=== PATIENT | female | born 1950 | race Caucasian/White ===

== ENCOUNTER → 2024-06-20 08:39 | Outpatient (REF) | payer OTHER, SELFPAY | LOC: RAD 08:39 | PROVIDERS: ATTENDING PHYSICIAN Surgery Vascular Surgery; FAMILY PHYSICIAN Family Medicine Sports Medicine | DX: I77.9 Disorder of arteries and arterioles, unspecified (principal); I65.22 Occlusion and stenosis of left carotid artery; I70.8 Atherosclerosis of other arteries | CPT/HCPCS: 93880; 93922; 93923; 93925; 93930; 93978 ==

== ENCOUNTER → 2024-06-29 15:36 | Outpatient (REF) | payer OTHER, SELFPAY | LOC: RAD 15:36 | PROVIDERS: ATTENDING PHYSICIAN Surgery Vascular Surgery; FAMILY PHYSICIAN Family Medicine Sports Medicine | DX: M79.89 Other specified soft tissue disorders (principal) | CPT/HCPCS: 93971 ==

== ENCOUNTER → 2025-01-16 08:59 | Outpatient (REF) | payer OTHER, SELFPAY | LOC: RAD 08:59 | PROVIDERS: ATTENDING PHYSICIAN Surgery Vascular Surgery; FAMILY PHYSICIAN Family Medicine Sports Medicine | DX: I65.22 Occlusion and stenosis of left carotid artery (principal); I70.8 Atherosclerosis of other arteries; I77.9 Disorder of arteries and arterioles, unspecified | CPT/HCPCS: 93880; 93922; 93923; 93925; 93930 ==

== ENCOUNTER 2025-05-30 09:40 | Day surgery (SDC) | payer OTHER, SELFPAY ==
[2025-05-30 09:59] VITALS: BMI 25.9
[2025-05-30 10:16] VITALS: BP 200/82
[2025-05-30 10:18] VITALS: BP 195/84
[2025-05-30 10:18] LABS: Hematocrit 43.4 % (37.0-47.0); Hemoglobin 15.2 g/dL (12.0-16.0); Mean Corp Hgb Conc. 35.0 g/dL (33.0-37.0); Mean Corpuscular Volume 89.9 fL (81.0-99.0); Platelet Count 198 10^3/uL (130-400); Red Cell Dist. Width 13.3 % (11.5-14.5)
[2025-05-30 10:30] LABS: APTT 26.5 Sec (23.4-35.0); Blood Urea Nitrogen 17 mg/dl (7-17); Calcium 9.6 mg/dl (8.4-10.2); Carbon Dioxide 33 mmol/L (22-30); Chloride 97 mmol/L (98-107); Estimated Creatinine Clearance 61 ml/min; Glucose 143 mg/dl (70-99); INR 0.82; PT 11.8 Sec (11.4-14.6); Potassium 2.8 mmol/L (3.5-5.1); Sodium 139 mmol/L (135-145); eGFR > 60.00
[2025-05-30] MEDS: NSS 500 IV (10:35)
--- NOTE | 2025-05-30 10:37 | PTCARENOTE ---
POTASSIUM LEVEL 2.8, INSTITUTIONAL RESEARCH DIRECTOR NICA MADE AWARE.
--- NOTE | 2025-05-30 10:56 | PTCARENOTE ---
DR ROMERO AND DR GLYNN MADE AWARE OF POTASSIUM LEVEL OF 2.8. PROCEDURE CX. PT TO RECEIVE 40 MEQ POTASSIUM CHLORIDE STAT AND REPEAT LEVEL AT 1300.
[2025-05-30] MEDS: KCL 40 MEQ PO ×2 (11:04→13:51)
--- NOTE | 2025-05-30 11:05 | W.PN.UPDATE ---
Update Note
Progress Note Update
Patient here for right lower extremity angiogram procedure. Her potassium measurement on today's labs is 2.8. She tends to run low and is on some replacement therapy as an outpatient, but this is lower than expected or we would prefer for an
elective procedure such as this. I discussed with the anesthesiologist who also was not comfortable proceeding. As the procedure is not urgent/emergent, safest measure may be for canceling procedure and having patient address potassium issues with
her primary care team. Given the low value currently we will give her potassium replacement now, and recheck. And will encourage her/assist her with arranging expeditious outpatient follow-up with her primary care team.
--- NOTE | 2025-05-30 13:15 | PTCARENOTE ---
BMP DRAWN AND SENT TO LAB
[2025-05-30 13:35] LABS: Blood Urea Nitrogen 18 mg/dl (7-17); Calcium 9.0 mg/dl (8.4-10.2); Carbon Dioxide 33 mmol/L (22-30); Chloride 97 mmol/L (98-107); Estimated Creatinine Clearance 72 ml/min; Glucose 140 mg/dl (70-99); Potassium 3.2 mmol/L (3.5-5.1); Sodium 138 mmol/L (135-145); eGFR > 60.00
--- NOTE | 2025-05-30 13:37 | PTCARENOTE ---
REPEAT POTASSIUM 3.2. LIQUOR INSPECTOR COOK AWARE
--- NOTE | 2025-05-30 14:09 | PTCARENOTE ---
PT POTASSIUM LEVEL 3.2, GARY BAUM AWARE AND PT RECEIVED ADDITIONAL 40MEQ OF POTASSIUM CHLORIDE, PT OK FOR D/C PER GARY BAUM
== END 2025-05-30 14:05 | disposition home or self-care (01) ==
LOC: CATH 09:40
PROVIDERS: Nurse Practitioner; ATTENDING PHYSICIAN Surgery Vascular Surgery; PRIMARYCARE PHYSICIAN Family Medicine Sports Medicine; REFERRING PHYSICIAN Internal Medicine Cardiovascular Disease
DX: I77.9 Disorder of arteries and arterioles, unspecified (principal); Z53.09 Procedure and treatment not carried out because of other contraindication; I10 Essential (primary) hypertension; E78.5 Hyperlipidemia, unspecified; Z79.82 Long term (current) use of aspirin; Z79.02 Long term (current) use of antithrombotics/antiplatelets
CPT/HCPCS: 80048; 85027; 85610; 85730; 86850; 86900; 86901

== ENCOUNTER 2025-06-19 06:21 | Day surgery (SDC) | payer OTHER, SELFPAY ==
[2025-06-19] VITALS (14 sets, daily range): BP systolic 125–178; BP diastolic 52–74; BMI 25.5
--- NOTE | 2025-06-19 07:00 | HP.FOC2 ---
Focused History & Physical
Chief Complaint
HPI:
Chief Complaint: None
HPI / Indication for Planned Procedure: 74-year-old female here today for planned right extremity arteriogram with Dr. Truong. Patient presents at baseline health. Denies recent illnesses or trauma. Patient agreeable to proceed with planned
procedure today
Relevant Past Medical History: Other (Hyperlipidemia, hypertension, PVD, colitis)
Relevant Social History: Negative
Relevant Family History: Negative
Review of Systems
Review of Pertinent Systems: All Systems Negative
Medication
See Medication form for detailed medications: Yes
Medication List (including Herbals & OTC):
acetaminophen 500 mg capsule 500 mg PO Q6H PRN mild pain 11/17/21
aspirin 81 mg tablet,delayed release 81 mg PO DAILY Blood clot prevention/tx 11/17/21
biotin 1 mg tablet 1 mg PO DAILY Supplement 11/17/21
calcium carbonate 500 mg PO HS Supplement 11/17/21
coenzyme Q10 200 mg capsule (Co Q-10) 200 mg PO HS Supplement 11/17/21
hydrochlorothiazide 25 mg tablet 25 mg PO DAILY Blood pressure 11/17/21
pantoprazole 40 mg tablet,delayed release 40 mg PO DAILY Gastrointestinal issue 11/17/21
rosuvastatin 10 mg tablet 10 mg PO HS High cholesterol 11/17/21
vitamin B complex 1 tab PO DAILY Supplement 11/17/21
melatonin 10 mg tablet 10 mg PO HS PRN SLEEP 11/27/21
clopidogrel 75 mg tablet 75 mg PO DAILY Blood clot prevention/tx 12/16/21
metoprolol succinate 50 mg tablet,extended release 24 hr 50 mg PO DAILY Blood pressure 12/25/21
gabapentin 300 mg capsule 300 mg PO DAILY Pain 02/19/22
gabapentin 300 mg capsule 600 mg PO HS Pain 02/19/22
lactobacillus combo no.11 15 billion cell sprinkle capsule (Probiotic) 1 cap PO HS Supplement 02/23/22
evolocumab 140 mg/mL subcutaneous syringe (Repatha Syringe) 140 mg SQ Q2W High cholesterol 03/07/23
cephalexin 500 mg capsule 500 mg PO DAILY Infection #30 caps 04/30/23
ashwagandha extract 500 mg capsule 600 mg PO DAILY 05/28/25
cholecalciferol (vitamin D3) 50 mcg (2,000 unit) tablet (Vitamin D3) 50 mcg PO DAILY 05/28/25
diphenhydramine HCl 25 mg capsule (Benadryl) 25 mg PO HS PRN insomnia 05/28/25
nifedipine 30 mg tablet,extended release 24 hr (Procardia XL) 30 mg PO HS 05/28/25
nifedipine 60 mg tablet,extended release 24 hr (Procardia XL) 60 mg PO .@2P 05/28/25
psyllium husk 3.4 gram/5.4 gram oral powder (Metamucil) 1 tsp PO DAILY 05/28/25
potassium chloride 20 mEq tablet,extended release 40 meq PO BID 06/14/25
Medications Reviewed: Yes
Allergies and Reactions
Patient has Allergies: Yes
Noted Allergies and Reactions:
Allergy/AdvReac Type Severity Reaction Status Date / Time
Penicillins Allergy Mild as a child Verified 06/19/25 06:43
-
tolerates
Cephalexin
sulfamethoxazole (From AdvReac Nausea Verified 06/19/25 06:43
Bactrim)
trimethoprim (From Bactrim) AdvReac Nausea Verified 06/19/25 06:43
Pertinent Physical Exam
All Other Systems: Negative
Head/Neck: Normal
Lungs: Normal
Heart: Normal
Abdomen: Normal
Extremities: Normal and Other (Palpable)
Neurological: Normal
Diagnosis / Assessment
PAD
Plan / Procedure
Planned right lower extremity arteriogram, possible angioplasty and stent placement with Dr. Truong today
Anesthesia/Sedation to be done by Anesthesia Provider: Yes
[2025-06-19] MEDS: NSS 500 IV (07:21)
[2025-06-19 07:31] LABS: Hematocrit 44.3 % (37.0-47.0); Hemoglobin 15.1 g/dL (12.0-16.0); Mean Corp Hgb Conc. 34.1 g/dL (33.0-37.0); Mean Corpuscular Volume 91.0 fL (81.0-99.0); Platelet Count 185 10^3/uL (130-400); Red Cell Dist. Width 13.3 % (11.5-14.5)
[2025-06-19 07:34] LABS: Blood Urea Nitrogen 19 mg/dl (7-17); Calcium 9.8 mg/dl (8.4-10.2); Carbon Dioxide 31 mmol/L (22-30); Chloride 100 mmol/L (98-107); Estimated Creatinine Clearance 56 ml/min; Glucose 136 mg/dl (70-99); Potassium 3.3 mmol/L (3.5-5.1); Sodium 141 mmol/L (135-145); eGFR > 60.00
--- NOTE | 2025-06-19 07:51 | W.SUR.PREOP ---
Pre-Operative Surgical Note
-
I have examined this patient prior to the performance of the scheduled procedure.
The patient's condition is unchanged from the time of the current History and
Physical and the patient is able to undergo the scheduled procedure.
[2025-06-19 08:06] LABS: INR 0.83; PT 11.9 Sec (11.4-14.6)
[2025-06-19 08:07] LABS: APTT 26.7 Sec (23.4-35.0)
--- NOTE | 2025-06-19 08:49 | W.SUR.POST ---
Surgical Immediate Post Op
Note
Pre Op Diagnosis: PAD
Post Op Diagnosis: PAD
Procedure Performed: Right lower extremity arteriogram, right SFA and popliteal artery angioplasty with drug-coated balloon
Primary Surgeon: Alexi
Anesthesia: Local and sedation
Estimated Blood Loss: Less than 2 cc
Fluids: See anesthesia flowsheet
Drains/Shunts: None
Specimens/Cultures: None
Doppler/Duplex/Angio (Y/N): Y
Complications: None
Operative Findings: See op note
[2025-06-19] MEDS: NSS 1000 IV (09:35)
--- NOTE | 2025-06-19 12:26 | OR.RPT ---
Operative Report
Operative Report
PROCEDURE DATE: 06/19/2025
Preoperative diagnosis:
1. Severe peripheral arterial disease with extensive right lower extremity revascularization.
2. Severe debilitating recurrent right calf claudication.
Postoperative diagnosis: Same
Procedure:
1. Duplex assisted cannulation of left common femoral artery.
2. Right lower extremity arteriogram.
3. Balloon angioplasty of right [id number] popliteal artery with 4 mm Bard Lutonix drug-coated balloon.
4. Balloon angioplasty of proximal superficial femoral artery with 4 mm Bard Lutonix drug-coated balloon.
5. Supervision and interpretation.
Surgeon: Alexi
Pipe Washer: None
Complications: None
Anesthesia: Local, sedation
Fluoroscopy:
7.0 min
35 mGy
6.75 gy.cm2
Indications for procedure:
Extensive peripheral arterial disease history with extensive complicated revascularizations. Recurrent right calf claudication. Concern for recurrent SFA stenosis and possible more distal stenosis. Risk/benefits/alternatives of angiography fully
discussed. Patient understood all wished to proceed.
Description of procedure:
Patient was identified, brought to the operating room. Placed on the table in the supine position. After the adequate administration of anesthesia, the patient was prepped and draped in the standard surgical fashion. A standard preoperative
timeout was undertaken and everybody was in agreement with the plan.
The femoral to femoral artery bypass graft was punctured in the left groin with a micropuncture kit under direct duplex ultrasound guidance. A 5 Spanish sheath was then advanced over a 0.035 inch wire. The patient was given 5000 units of
intravenous heparin. Angiogram demonstrated patent cross femoral bypass anastomosis in the right groin. Patent distal external iliac artery and common femoral artery/graft with no stenosis. Anastomosis of the graft to the SFA appeared patent and
prior angioplasty site appeared nicely patent although there potentially was a recurrent web but it was very difficult to say for sure. About 3 cm to 4 cm beyond this area there is a mild to moderate plaque stenosis in the SFA. I now cannulated
the SFA with a flopping of hydrophilic wire and then exchanged for a glide catheter. Right lower extremity arteriogram through the remainder of the lower extremity was performed. The SFA was diminutive throughout the remainder of its course but no
significant stenosis identified (just a small sized vessel). The above-knee popliteal artery had a plaque stenosis that was at least moderate and appeared to cause some flow limitation. Beyond here there was three-vessel runoff that was patent
although the anterior tibial artery appeared to be the more larger dominant runoff vessel. Both the anterior tibial and posterior tibial artery across the ankle but distal foot filling was poorly interrogated but appeared to be reasonable. The
peroneal artery was patent to the level of the ankle and gave typical Y collaterals, though one of the collaterals was very small and diminutive.
At this point I used a flopping of hydrophilic wire and under roadmap assisted guidance was able to traverse the popliteal artery stenosis. I advanced my catheter and then advanced a Storq wire into the tibioperoneal trunk. Now I used a Bard
Lutonix 4 mm x 4 cm drug-coated balloon and perform balloon angioplasty of the popliteal stenosis with standard prolonged inflation. Completion angiogram demonstrated good result with minimal residual stenosis. At this point, given ambiguity as to
whether there was a proximal SFA stenosis web, I elected to angioplasty it given that that site had prior been angioplastied and the remainder of it looked good but there may have been a web right at the anastomosis. To be sure I used a 4 mm x 6 cm
drug-coated Bard Lutonix angioplasty balloon and this would encompass the area of stenosis about 4 to 5 cm beyond the origin of the SFA. Prolonged inflation was again performed. Completion angiogram demonstrated good result with no significant
residual stenosis and brisk/preserved flow down the runoff. At this point I was very satisfied. Wires and catheters were withdrawn. The sheath was withdrawn and manual pressure was applied to the puncture site. Hemostasis was fully achieved.
The patient had been given protamine to reverse the heparin. Upon completion she had palpable bilateral DP pulses.
The patient tolerated procedure well.
[2025-06-19] MEDS: KLOR-CON 40 MEQ PO (12:52)
== END 2025-06-19 15:15 | disposition home or self-care (01) ==
LOC: CATH 06:21
PROVIDERS: ATTENDING PHYSICIAN Surgery Vascular Surgery; PRIMARYCARE PHYSICIAN Family Medicine Sports Medicine
DX: I70.211 Atherosclerosis of native arteries of extremities with intermittent claudication, right leg (principal); I10 Essential (primary) hypertension; E78.49 Other hyperlipidemia; Z79.82 Long term (current) use of aspirin; Z79.899 Other long term (current) drug therapy; Z79.02 Long term (current) use of antithrombotics/antiplatelets
CPT/HCPCS: 37224; 80048; 85027; 85610; 85730; 86850; 86900; 86901; C1769; C1894; C2623; Q9967

== ENCOUNTER → 2025-07-19 13:01 | Outpatient (REF) | payer OTHER, SELFPAY | LOC: RAD 13:01 | PROVIDERS: ATTENDING PHYSICIAN Surgery Vascular Surgery; FAMILY PHYSICIAN Family Medicine Sports Medicine | DX: I65.22 Occlusion and stenosis of left carotid artery (principal); I65.21 Occlusion and stenosis of right carotid artery; I77.9 Disorder of arteries and arterioles, unspecified; I70.8 Atherosclerosis of other arteries | CPT/HCPCS: 93880; 93922; 93923; 93925; 93930 ==

== ENCOUNTER → 2025-10-23 13:58 | Outpatient (REF) | payer OTHER, SELFPAY | LOC: RAD 13:58 | PROVIDERS: ATTENDING PHYSICIAN Registered Nurse; FAMILY PHYSICIAN Family Medicine Sports Medicine | DX: I77.9 Disorder of arteries and arterioles, unspecified (principal) | CPT/HCPCS: 93922; 93925 ==